=== PATIENT | male | born 1985 | race Caucasian/White ===

== ENCOUNTER 2017-03-02 11:00 | Emergency (ER) | payer OTHER ==
[~2017-03-02] VITALS: Ht 167.6 cm; Wt 69.0 kg
--- NOTE | 2017-03-02 12:10 | REP ---
ICT Head without contrast HISTORY: Head injury COMPARISON: None There is no intraparenchymal hemorrhage, acute infarct, mass or midline shift. The ventricular system is normal in appearance. There is no extra cerebral collection. There is no fracture. The visualized sinuses are clear. IMPRESSION: There is no intracranial lesion. Signed by Jacob Gil MD 03/02/2017 12:01 P
--- NOTE | 2017-03-02 12:41 | REP ---
Right hand four views : There is no fracture or dislocation. Mineralization and joint spaces are normal. There are no calcifications or foreign bodies. Impression: Negative right hand . Signed by Franki Galdamez MD 03/02/2017 12:32 P
[2017-03-02 13:07] VITALS: BP 118/68
== END 2017-03-02 13:11 | disposition home or self-care (01) ==
LOC: M ED 11:00
DX: S09.90XA Unspecified injury of head, initial encounter (principal); S63.601A Unspecified sprain of right thumb, initial encounter; S60.011A Contusion of right thumb without damage to nail, initial encounter; Y04.0XXA Assault by unarmed brawl or fight, initial encounter; Y92.149 Unspecified place in prison as the place of occurrence of the external cause; Y93.89 Activity, other specified; Y99.9 Unspecified external cause status

== ENCOUNTER → 2017-03-17 | Outpatient (CLI) | payer OTHER ==
--- NOTE | 2017-03-17 10:21 | REP ---
RIGHT FINGERS, FOUR VIEWS: HISTORY: Fracture. COMPARISON: 03/02/2017. There is no acute fracture or dislocation. The joint spaces are normal in appearance. IMPRESSION: There is no acute fracture or dislocation. Signed by Jacob Gil MD 03/17/2017 10:45 A
== END ==
LOC: M RAD 08:51
PROVIDERS: ATTEND Surgery
DX: S69.91XA Unspecified injury of right wrist, hand and finger(s), initial encounter (principal); X58.XXXA Exposure to other specified factors, initial encounter; Y92.89 Other specified places as the place of occurrence of the external cause; Y93.89 Activity, other specified; Y99.8 Other external cause status